=== PATIENT | female | born 1970 | race Hispanic/Latino ===

== ENCOUNTER 2019-02-01 22:31 | Inpatient (IN) | payer SELFPAY ==
[2019-02-01 23:29] LABS: Bilirubin Negative (Negative); Blood, Urine Negative (Negative); Clarity CLEAR (Clear); Glucose, Urine (Dipstick) Negative (Negative); Leukocyte Small (Negative); Nitrite Positive (Negative); Protein, Urine (Dipstick) Negative (Neg-Trace); Specific Gravity, Urine 1.011 (1.002-1.036); Urobilinogen 0.2 mg/dL (0.2-1.0); pH, Urine 5.5 (5.0-9.0)
[2019-02-01 23:30] LABS: Bacteria/HPF 1+ HPF (None Seen); Hyaline Casts/LPF 0-3 HYALINE CAST LPF (0-3 Hyaline); RBC/HPF None Seen HPF (0-3); Squamous Epithelial 0-3 HPF (0-3)
[2019-02-01 23:38] LABS: Amphetamine Not Detected (NotDetected); Barbiturates Screen Not Detected (NotDetected); Benzodiazepine Screen Not Detected (NotDetected); Cocaine Metabolite Screen Not Detected (NotDetected); Medtox Reader # READER 4; Methadone Not Detected (NotDetected); Methamphetamine Not Detected (NotDetected); Opiate Screen Not Detected (NotDetected); Oxycodone Screen Not Detected (NotDetected); Phencyclidine (PCP) Not Detected (NotDetected); THC/Cannabinoid Screen Not Detected (NotDetected); Tricyclic Screen Not Detected (NotDetected)
[2019-02-01 23:39] LABS: Medtox Control Line Valid? VALID (VALID)
[2019-02-01 23:48] LABS: #Basophils 0.1 thou/uL (0.0-0.2); #Eosinphils 0.1 thou/uL (0.0-0.7); #Lymphocytes 2.8 thou/uL (1.20-3.40); #Monocytes 0.5 thou/uL (0.11-0.59); #Neutrophils 7.6 thou/uL (1.40-6.50); %Basophils 0.5 % (0.0-1.0); %Eosinophils 0.6 % (0.0-10.0); %Lymphocytes 25.3 % (21.0-51.0); %Monocytes 4.2 % (0.0-10.0); %Neutrophils 69.4 % (42.0-75.0); Hemoglobin 11.7 g/dL (12.0-16.0); Mean Corpuscular HGB CONC 34.5 g/dL (32.0-36.0); Mean Corpuscular Hemoglobin 29.6 pg (27.0-31.0); Mean Corpuscular Volume 85.9 fL (78.0-98.0); Mean Platelet Volume 8.2 fL (7.4-10.4); Platelet Count 298 thou/uL (130-400); RBC Distribution Width 11.7 % (11.5-14.5); Red Blood Cell (RBC) Count 3.96 mill/uL (4.20-5.40)
[2019-02-01 23:50] LABS: BHCG - Serum Negative (NEGATIVE); Pregs Control Background? CLEAR/WHITE (CLR/WHITE); Pregs Control Bar Appear? YES (CONTROL BAR)
[2019-02-02 00:07] LABS: CK (CPK) 114 U/L (29-168); Lipase 30 U/L (8-78)
[2019-02-02 00:09] LABS: ALT (SGPT) 29 U/L (8-55); AST (SGOT) 21 U/L (5-34); Acetaminophen Less than 6.0 mcg/mL (10.0-30.0); Albumin 4.2 g/dL (3.5-5.0); Alcohol 183 mg/dL (Less than 10); Alkaline Phosphatase 123 U/L (40-150); Anion Gap 19 mmol/L (10-20); BUN (Urea Nitrogen) 14 mg/dL (7.0-18.7); Bilirubin, Total 0.3 mg/dL (0.2-1.2); Calc. Creatinine Clearance 0 mL/min (70-130); Carbon Dioxide 17 mmol/L (22-29); Chloride 108 mmol/L (98-107); Estimated GFR-MDRD 81; Globulin 2.9 g/dL (2.4-3.5); Glucose 175 mg/dL (70-105); Potassium 3.7 mmol/L (3.5-5.1); Protein, Total 7.1 g/dL (6.0-8.3); Salicylate Less than 8.0 mg/dL (15.0-30.0); Sodium 140 mmol/L (136-145)
[2019-02-02 00:30] LABS: Actual Bicarbonate (HCO3a) 17.2 mEq/L (22-28); Analyzer IN Cardio ER; Base Excess (BEa) -8.7 mEq/L (-2.0 to +3.0); CO2 Tension 37.1 mmHg (35.0-45.0); Calcium, Ionized 1.17 mmol/L (1.12-1.30); Carboxyhemoglobin (COHb) 0.3 gm% (0.0-3.0); Hemoglobin (Hb) 12.2 g/dL (12.0-16.0); O2 Tension (PaO2) 160.4 mmHg (80.0-100.0); Potassium - ABG Lab 3.71 mmol/L (3.70-5.30); pH, Arterial 7.29 (7.35-7.45)
[2019-02-02 00:31] LABS: ALV-art Gradient -7.135 (0-20)
[2019-02-02] MEDS ORDERED: Dextrose 5 % And 0.9 % NaCl 1,000 ML IV SCH (02:35)
[2019-02-02 03:01] VITALS: BMI 28.0
[2019-02-02] MEDS ORDERED: Dextrose 50% Abboject 50 ML SYRINGE SLOW IVP PRN (03:09)
[2019-02-02] MEDS ORDERED: Acetaminophen 500 MG TAB PO PRN (03:09)
[2019-02-02] MEDS ORDERED: Ondansetron PF 4 MG/2 ML Vial IVP PRN (03:09)
[2019-02-02] MEDS ORDERED: Lorazepam 2 MG/ML VIAL SLOW IVP PRN (03:09)
[2019-02-02] MEDS ORDERED: hydrALAZINE 20 MG/ML VIAL SLOW IVP PRN (03:09)
[2019-02-02] MEDS ORDERED: Dextrose 5% in Water 1,000 ML IV PRN (03:09)
[2019-02-02] MEDS ORDERED: Ondansetron ODT 4 MG TAB PO PRN (03:09)
[2019-02-02] MEDS: Multivitamins, Adult 10 ML, Folic Acid 1 MG, Thiamine HCl 100 MG in Dextrose 5 %-0.45 %... IV SCH (03:49)
[2019-02-02] MEDS: Sodium Chloride 0.9% 1,000 ML IV SCH ×2 (03:59→12:13)
[2019-02-02] MEDS: cefTRIAXone\\ROCEPHIN 1 GM in Sodium Chloride 0.9% 100 ML IVPB SCH (04:22)
--- NOTE | 2019-02-02 04:27 | HP ---
PRIMARY CARE PROVIDER: [facility]. CHIEF COMPLAINT: Altered mental status. HISTORY OF PRESENT ILLNESS: This is a 48-year-old female, who presents to [facility] Emergency Department via EMS personnel for evaluation of alcohol intoxication and altered mental status. The patient was apparently found by family members near an empty Tequila bottle according to family reports. History is obtained after discussions with the patient and the patient's at the bedside. Family denies any chronic alcoholism, but apparently the patient had been complaining to her cousin how nobody wanted her or nobody loved her. The patient was noted to be tearful and crying during most of the exam in the emergency room. No reported history of depression or psychiatric issues. The patient was noted acutely intoxicated in the emergency room. In the emergency room, the patient received intravenous normal saline x2 L and metabolic screening showed lactic acidosis with initial lactic acid level of 6.6. Plasma alcohol level was noted to be 183 on urine drug screen. The patient was transferred to the Critical Care Unit for further evaluation. PAST MEDICAL HISTORY: Diabetes mellitus, type 2. PAST SURGICAL HISTORY: Status post laparoscopic cholecystectomy. CURRENT MEDICATIONS: 1. Metformin 1000 mg p.o. b.i.d. 2. NovoLog 70/30 of 20 units subcutaneously q.a.m. 3. Glipizide 5 mg p.o. daily. 4. Lipitor 10 mg p.o. daily. ALLERGIES: NO KNOWN DRUG ALLERGIES. FAMILY HISTORY: Positive for diabetes mellitus. SOCIAL HISTORY: The patient is , accompanied by her in the hospital. Occasional alcohol use. No tobacco or illicit drug use. REVIEW OF SYSTEMS: CONSTITUTIONAL: Negative for weight loss or gain, ability to conduct usual activities. SKIN: Negative for rash, itching. EYES: Negative for double vision, pain. ENT/MOUTH: Negative for nose bleeding, neck stiffness, pain, tenderness. CARDIOVASCULAR: Negative for palpitations, dyspnea on exertion, orthopnea. RESPIRATORY: Negative for shortness of breath, wheezing, cough, hemoptysis, fever or night sweats. GASTROINTESTINAL: Negative for poor appetite, abdominal pain, heartburn, nausea, vomiting, constipation, or diarrhea. GENITOURINARY: Negative for urgency, frequency, dysuria, nocturia. MUSCULOSKELETAL: Negative for pain, swelling. NEUROLOGIC/PSYCHIATRIC: Negative for anxiety, depression. ALLERGY/IMMUNOLOGIC: Negative for skin rash, bleeding tendency. Otherwise, negative except as stated per HPI. PHYSICAL EXAMINATION: VITAL SIGNS: On admission, blood pressure 104/66, pulse 98, respiratory rate 14, temperature 98.6 degrees Fahrenheit, O2 saturation 98% on room air. GENERAL APPEARANCE: This is a 48-year-old female, alert and responsive, in no acute distress. HEENT: Pupils are equal, round, reactive to light and accommodation. Extraocular muscles are intact. No scleral icterus. No conjunctival injection. Nares patent. OP is clear. Teeth in fair repair. NECK: Supple. No cervical adenopathy. No thyromegaly. No carotid bruits. No JVD appreciated. Cervical spine with full active and passive range of motion. No meningeal signs noted. CHEST: Lungs are clear to auscultation bilaterally. CARDIOVASCULAR: S1 and S2 without noted murmur, rub, or gallop. ABDOMEN: Rounded, soft, nontender, and nondistended. Bowel sounds are positive in all 4 quadrants. There is no hepatosplenomegaly. No abdominal bruits. No rebound or guarding appreciated. EXTREMITIES: Warm and dry with fair turgor. No clubbing, cyanosis, or asymmetric edema appreciated. Pulses palpable distally at the dorsalis pedis, posterior tibial, and popliteal arteries bilaterally. Capillary refill less than 2 seconds. NEUROLOGIC: Cranial nerves 2 through 12 are grossly intact. No focal or lateralizing signs appreciated. PERTINENT LAB AND X-RAY FINDINGS: Sodium 140, potassium 3.7, chloride 108, carbon dioxide level 17, anion gap of 19, BUN 14, creatinine 0.76, and glucose 175. Lactic acid level 6.6. Calcium 9.0. LFTs within normal limits. Total CK 114. Lipase 30. Serum beta-hCG negative. CBC showed a white blood cell count of 11, hemoglobin 11.7, hematocrit 34, and platelet count 298 with normal differential. Arterial blood gas, dated 02/02/2019, showed a pH of 7.29, pCO2 of 37.1, pO2 of 160.4, bicarb 17.2, with O2 saturation 98%. Urinalysis positive for ketones, nitrites, and small leukocyte esterase with 7 to 10 wbc's per high-power field. Urine drug screen, dated 02/01/2019, showed a plasma alcohol level of 183. EKG dated, 02/02/2019, by my interpretation shows sinus mechanism with heart rates in the 90s. Normal R-wave progression noted in the precordial leads. Normal axis. No acute ST-T wave changes appreciated. ASSESSMENT AND PLAN: 1. Acute alcohol intoxication. The patient will be admitted to the Critical Care Unit. We will continue general supportive management. Ativan 0.5 mg IV q.6 hours p.r.n. We will continue to monitor for withdrawal symptoms. Alcohol cessation resources prior to discharge. Continue banana bag intravenously at 125 mL/h. 2. Acute metabolic encephalopathy. Suspect secondary to #1. We will continue general supportive management. Serial neurologic checks. Suspect clinical improvement with overall alcohol intoxication resolution. 3. Lactic acidosis. Suspect secondary to metformin exposure. We will continue IV fluids as outlined previously and repeat lactic acid level in the a.m. Hold metformin. 4. Diabetes mellitus type 2. We will confirm home diabetic regimen. Hold metformin. Insulin sliding scale for reflexive coverage. Accu-Cheks before meals and at bedtime. 5. Prophylaxis. SCDs while in bed. Pepcid 20 mg p.o. b.i.d. 6. Code Status is full. Surrogate medical decision maker is the patient's . Job ID: [id number]
[2019-02-02 06:13] LABS: ALT (SGPT) 28 U/L (8-55); AST (SGOT) 23 U/L (5-34); Albumin 3.9 g/dL (3.5-5.0); Alkaline Phosphatase 108 U/L (40-150); Anion Gap 17 mmol/L (10-20); BUN (Urea Nitrogen) 10 mg/dL (7.0-18.7); Bilirubin, Total 0.3 mg/dL (0.2-1.2); Calc. Creatinine Clearance 102 mL/min (70-130); Calcium 9.2 mg/dL (7.8-10.44); Carbon Dioxide 17 mmol/L (22-29); Chloride 113 mmol/L (98-107); Estimated GFR-MDRD 90; Globulin 2.8 g/dL (2.4-3.5); Glucose 168 mg/dL (70-105); Potassium 3.7 mmol/L (3.5-5.1); Protein, Total 6.7 g/dL (6.0-8.3); Sodium 143 mmol/L (136-145)
[2019-02-02 06:14] LABS: Lactic Acid 4.6 mmol/L (0.5-2.2)
[2019-02-02 06:18] LABS: Band 4 % (5-11); Hemoglobin 11.6 g/dL (12.0-16.0); Hypochromia SLIGHT = 6-15 cells (100X) (0-5/hpf); Lymphocytes 17 % (21-51); MDiff Complete? YES; Mean Corpuscular HGB CONC 33.8 g/dL (32.0-36.0); Mean Corpuscular Hemoglobin 29.8 pg (27.0-31.0); Mean Corpuscular Volume 88.4 fL (78.0-98.0); Mean Platelet Volume 8.2 fL (7.4-10.4); Monocytes 2 % (0-10); Neutrophil 77 % (42-75); Platelet Count 271 thou/uL (130-400); Platelet Morphology Comment Appears Adequate
[2019-02-02] MEDS ORDERED: Famotidine 20 MG TAB PO SCH (09:00)
--- NOTE | 2019-02-02 14:08 | PRG ---
DATE OF SERVICE: 02/02/2019 SUBJECTIVE: The patient reports she is feeling fine. She has been eating. She has been getting up and ambulating. She has no complaints. She does admit that she has some depression and sadnesses what has led to her drinking this occasion. OBJECTIVE: VITAL SIGNS: Temperature 98.4, pulse 81, BP 113/78, and O2 saturation 98%. GENERAL APPEARANCE: Slightly obese, age-appropriate female, in no distress. She is awake, alert, oriented, pleasant, and cooperative. HEART: Regular rate and rhythm without murmurs, gallops, or rubs. LUNGS: Clear to auscultation bilaterally. ABDOMEN: Soft, nontender, and nondistended with positive bowel sounds. EXTREMITIES: No cyanosis, clubbing, or edema. LABORATORY DATA: As of this morning, white count 10.0, hemoglobin 11.6, and platelets 271. Sodium 143, potassium 3.7, chloride 113, CO2 is 17, BUN 10, creatinine 0.69, and glucose 168. Most recent from lab draw postprandial was 444, although it is inconsistent with her previous numbers in the 160s. Lactic acid is 4.6. IMPRESSION AND PLAN: 1. Acute alcohol intoxication, resolved. 2. Lactic acidosis, possibly related to the patient's alcohol use along with the metformin. Metformin has been held. Her blood sugars are seemingly going up. We will continue to hold that. We will get other alternative treatments for now and repeat the lactic acid level in the morning. 3. Acute metabolic encephalopathy secondary to intoxication. The patient appears completely normal mental status at this time. 4. Diabetes mellitus. Resume glipizide. Continue sliding scale insulin. 5. Depression. The patient does admit to having depression and sadness, which she believes did lead to her over indulging in the alcohol. She is willing to consider treatment. We will consider starting a SSRI for this patient in the morning, once her lactic acidosis has fully resolved. Job ID: [id number]
[2019-02-02] MEDS: Sodium Chloride 0.45% 1,000 ML IV SCH (15:54)
--- NOTE | 2019-02-02 21:09 | CON ---
DATE OF CONSULTATION: 02/02/2019 SERVICE: Pulmonary Medicine. REASON FOR CONSULT: ICU patient. HISTORY OF PRESENT ILLNESS: The patient is a 48-year-old female with past medical history significant for essentially nothing. Apparently, she was quite sad and drank an entire bottle of Tequila. She ended up coming to the emergency department. She was acutely intoxicated. Because of some marginal blood pressures, she was tucked into the ICU. There was some minimal evidence of some end-organ damage associated with this. Overnight, it is cleared completely. She has cleared her toxins. Her mentation is fully intact, and her blood pressures have firmed up very nicely overnight. She cannot provide any additional elements of the history. She is denying suicidal ideation at this moment. The over drinking of alcohol is really primarily secondary to her being sad and not because of an attempt on her own life. PAST MEDICAL HISTORY: Type 2 diabetes mellitus. PAST SURGICAL HISTORY: Cholecystectomy, laparoscopic. ALLERGIES: NO KNOWN DRUG ALLERGIES. MEDICATIONS: List of her inpatient medications was reviewed. No specific updates were made at this time. FAMILY HISTORY: Noncontributory. SOCIAL HISTORY: The patient is . She does have significant alcohol abuse. She has no alcohol or illicit drug use. She has no exposure to chemicals, dust , or asbestos. REVIEW OF SYSTEMS: General, head, ears, eyes, nose, throat, cardiovascular, respiratory, GI, , musculoskeletal, neurologic, and skin are negative except as mentioned in the HPI. PHYSICAL EXAMINATION: VITAL SIGNS: Afebrile, pulse 81, blood pressure 113/78, respirations 18, saturation 98% on room air. GENERAL: The patient is awake and alert, in no apparent distress. LUNGS: Excellent air entry. No prolonged expiratory phase or wheezing is appreciated. HEART: Normal rate, regular. ABDOMEN: Soft, nontender, nondistended. Bowel sounds are positive. MUSCULOSKELETAL: No cyanosis or clubbing. No pitting in the bilateral lower extremities. NEUROLOGIC: Grossly nonfocal. LABORATORY DATA: WBC 10.0, hemoglobin 11.6, and platelets 271,000. PH 7.29, pCO2 37, PO2 160 at that time. Lactate was originally 6.6, but downtrended to 4.6. Anion gap was improving, creatinine 0.69 and improving. Basic metabolic profile is otherwise unremarkable. Glucose is greater than 444. ASSESSMENT: 1. Alcohol intoxication. 2. Metabolic encephalopathy, resolved. 3. Marginal blood pressures, resolved. 4. Type 2 diabetes mellitus, poorly controlled. 5. Depression, possible (currently denying this is suicidal ideation). DISCUSSION AND PLAN: I will transition the patient out of the ICU to the medical unit. We will continue ASE scales. If she develops signs of withdrawal, appropriate medications will be administered. At this point, she is hemodynamically stable and has no further requirements for intensive monitoring. As such, I think she can be transitioned to the medical floor. I will continue to follow for the time being. IV fluids will be switched over to half NS, but will be continued for the next 24 hours. I will once again repeat a lactate tomorrow morning. 70 minutes have been devoted to this patient in various activities. I personally reviewed all imaging studies and laboratory data noted within this document. For fifty percent of this time, I was interacting with the patient at the bedside or coordinating care with the care team. For the remainder of the time I was immediately available to the patient in the hospital unit. Job ID: [id number] MTDD
[2019-02-02] MEDS: HumaLOG 300 UNITS/3 ML VIAL SC PRN (22:57)
[2019-02-03] MEDS: Multivitamins, Adult 10 ML, Folic Acid 1 MG, Thiamine HCl 100 MG in Dextrose 5 %-0.45 %... IV SCH (04:18)
[2019-02-03] MEDS: Sodium Chloride 0.45% 1,000 ML IV SCH (04:44)
[2019-02-03] MEDS: cefTRIAXone\\ROCEPHIN 1 GM in Sodium Chloride 0.9% 100 ML IVPB SCH (04:45)
[2019-02-03] MEDS: glipiZIDE 5 MG TAB PO SCH (06:16)
[2019-02-03] MEDS: HumaLOG 300 UNITS/3 ML VIAL SC PRN ×4 (06:17→22:00)
[2019-02-03 06:35] LABS: Anion Gap 11 mmol/L (10-20); BUN (Urea Nitrogen) 10 mg/dL (7.0-18.7); Calc. Creatinine Clearance 100 mL/min (70-130); Calcium 8.6 mg/dL (7.8-10.44); Carbon Dioxide 23 mmol/L (22-29); Chloride 108 mmol/L (98-107); Estimated GFR-MDRD 89; Glucose 220 mg/dL (70-105); Potassium 3.8 mmol/L (3.5-5.1); Sodium 138 mmol/L (136-145)
[2019-02-03] MEDS ORDERED: Cepastat Lozenges 1 LOZ PO PRN (07:48)
[2019-02-03] MEDS ORDERED: Sodium Chloride 0.65% Nasal 44 ML BOT EA NARE PRN (07:48)
[2019-02-03] MEDS ORDERED: Senokot S 8.6-50 MG TAB PO PRN (07:48)
[2019-02-03] MEDS ORDERED: Artificial Tear Sol 15 ML BOT EA EYE PRN (07:48)
[2019-02-03] MEDS ORDERED: Bisacodyl 5 MG TAB PO PRN (07:48)
[2019-02-03] MEDS ORDERED: Loratadine 10 MG TAB PO PRN (07:48)
[2019-02-03] MEDS ORDERED: Eucerin (Mineral Oil/Petrolatum,White) 30 gm Jar TOP PRN (07:48)
[2019-02-03] MEDS ORDERED: Diabetic Tussin 200 MG/10 ML UDCUP PO PRN (07:48)
[2019-02-03] MEDS ORDERED: Loperamide HCl 2 MG CAP PO PRN (07:48)
[2019-02-03] MEDS ORDERED: Zolpidem Tartrate 5 MG TAB PO PRN (07:48)
[2019-02-03] MEDS ORDERED: Acetaminophen 500 MG TAB PO PRN (07:48)
[2019-02-03] MEDS: Atorvastatin Calcium 10 MG TAB PO SCH (09:30)
--- NOTE | 2019-02-03 13:11 | PDOC.PN ---
- Subjective Encounter Start Date: 02/03/19 Encounter Start Time: 07:45 -: old records requested/rev Patient seen and examined. No new complaints. No overnight events - Objective Resuscitation Status - Order Detail: 02/02/19 02:56 Resuscitation Status Routine Resuscitation Status: FULL: Full Resuscitation MAR Reviewed: Yes Vital Signs & Weight: Vital Signs (12 hours) Temp Pulse Resp BP BP Pulse Ox 02/03/19 12:00 124/81 02/03/19 11:00 98 F 76 17 124/81 97 02/03/19 09:30 109/71 95 02/03/19 07:30 98 F 81 20 109/71 95 02/03/19 04:45 98.1 F 79 16 104/69 95 02/03/19 04:00 104/69 Weight Weight 143 lb 15.39 oz Most Recent Monitor Data Heart Rate from ECG 80 NIBP 118/76 NIBP BP-Mean 90 Respiration from ECG 14 SpO2 97 I&O: 02/02/19 02/03/19 02/04/19 06:59 06:59 06:59 Intake Total 298 3678 Output Total 850 1350 Balance -552 2328 Result Diagrams: 02/02/19 05:48 02/03/19 05:17 Additional Labs: Accuchecks 02/03/19 02/03/19 02/02/19 11:40 04:56 22:51 POC Glucose 230 H 206 H 211 H 02/02/19 15:38 POC Glucose 162 H Phys Exam - Physical Examination Constitutional: NAD HEENT: PERRLA, moist MMs, sclera anicteric Neck: no JVD, supple Respiratory: no wheezing, no rales, no rhonchi Cardiovascular: RRR, no significant murmur, no rub Gastrointestinal: soft, non-tender, no distention, positive bowel sounds Musculoskeletal: no edema, pulses present Neurological: non-focal, normal sensation, moves all 4 limbs Lymphatic: no nodes Psychiatric: normal affect, A&O x 3 Skin: no rash, normal turgor Dx/Plan (1) Acute alcohol intoxication Code(s): F10.929 - ALCOHOL USE, UNSPECIFIED WITH INTOXICATION, UNSPECIFIED Status: Resolved Qualifiers: Complication of substance-induced condition: uncomplicated Qualified Code(s ): F10.920 - Alcohol use, unspecified with intoxication, uncomplicated (2) Acute metabolic encephalopathy Code(s): G93.41 - METABOLIC ENCEPHALOPATHY Status: Resolved (3) Anemia, normocytic normochromic Code(s): D64.9 - ANEMIA, UNSPECIFIED Status: Chronic (4) Lactic acidosis Code(s): E87.2 - ACIDOSIS Status: Resolved (5) Diabetes type 2, uncontrolled Code(s): E11.65 - TYPE 2 DIABETES MELLITUS WITH HYPERGLYCEMIA Status: Chronic (6) Dyslipidemia Code(s): E78.5 - HYPERLIPIDEMIA, UNSPECIFIED Status: Chronic (7) UTI (urinary tract infection) Status: Acute - Plan cont current plan of care, plan discussed w/ family, continue antibiotics * continue rocephin * follow culture * continue IVF * expecting discharge tomorrow * counselled to avoid alcohol abuse * discussed with family * medication reviewed as below * symptomatic treatment. Review of Systems - Review of Systems ENT: negative: Ear Pain, Ear Discharge, Nose Pain, Nose Discharge, Nose Congestion, Mouth Pain, Mouth Swelling, Throat Pain, Throat Swelling, Other Respiratory: negative: Cough, Dry, Shortness of Breath, Hemoptysis, SOB with Excertion, Pleuritic Pain, Sputum, Wheezing Cardiovascular: negative: chest pain, palpitations, orthopnea, paroxysmal nocturnal dyspnea, edema, light headedness, other Gastrointestinal: negative: Nausea, Vomiting, Abdominal Pain, Diarrhea, Constipation, Melena, Hematochezia, Other Genitourinary: negative: Dysuria, Frequency, Incontinence, Hematuria, Retention , Other Musculoskeletal: negative: Neck Pain, Shoulder Pain, Arm Pain, Back Pain, Hand Pain, Leg Pain, Foot Pain, Other - Medications/Allergies Allergies/Adverse Reactions: Allergies Allergy/AdvReac Type Severity Reaction Status Date / Time No Known Allergies Allergy Verified 02/02/19 03:25 Medications: Current Medications Acetaminophen (Tylenol) 500 mg PO Q6H PRN PRN Reason: Mild Pain (1-3) Artificial Tears (Liquitears 15ml Bottle) 2 drop EA EYE PRN PRN PRN Reason: Dry Eyes Atorvastatin Calcium (Lipitor) 5 mg PO DAILY JETHRO Last Admin: 02/03/19 09:30 Dose: 5 mg Bisacodyl (Dulcolax) 10 mg PO DAILYPRN PRN PRN Reason: Constipation Dextrose/Water (Dextrose 50%) 25 gm SLOW IVP PRN PRN PRN Reason: Hypoglycemia Glipizide (Glucotrol) 5 mg PO DAILY-[facility] Last Admin: 02/03/19 06:16 Dose: 5 mg Glucagon (Glucagon) 1 mg IM PRN PRN PRN Reason: Hypoglycemia Guaifenesin (Robitussin Sf) 200 mg PO Q4H PRN PRN Reason: Cough Hydralazine HCl (Apresoline) 10 mg SLOW IVP Q4H PRN PRN Reason: SBP > 180 and HR < 70 Multivitamins 10 ml/ Folic Acid 1 mg/ Thiamine HCl 100 mg / Dextrose/Sodium Chloride 1,011.2 mls @ 125 mls/hr IV Q24HR [facility] Last Admin: 02/03/19 04:18 Dose: 1,011.2 mls Dextrose/Water (D5w) 1,000 mls @ 0 mls/hr IV .Q0M PRN PRN Reason: Hypoglycemia Ceftriaxone Sodium 1 gm/ (Sodium Chloride) 100 mls @ 200 mls/hr IVPB Q24HR [facility] Last Admin: 02/03/19 04:45 Dose: 100 mls Sodium Chloride (1/2 Normal Saline) 1,000 mls @ 75 mls/hr IV .[id number] [facility] Last Admin: 02/03/19 04:44 Dose: 1,000 mls Insulin Human Lispro (Humalog) 0 units SC .MILD SLIDING SCALE PRN PRN Reason: Mild Correctional Scale Last Admin: 02/03/19 12:29 Dose: 3 unit Insulin Human Lispro (Humalog) 0 units SC .BEDTIME SLIDING SC PRN PRN Reason: Bedtime Correctional Scale Last Admin: 02/02/19 22:57 Dose: 2 unit Loperamide HCl (Imodium) 2 mg PO PRN PRN PRN Reason: Diarrhea/Loose Stools Loratadine (Claritin) 10 mg PO DAILYPRN PRN PRN Reason: Sinus Symptoms Lorazepam (Ativan) 0.5 mg SLOW IVP Q6H PRN PRN Reason: Anxiety/Agitation Mineral Oil/White Petrolatum (Eucerin Cream) 0 gm TOP BIDPRN PRN PRN Reason: Dry Skin Ondansetron HCl (Zofran Odt) 4 mg PO Q6H PRN PRN Reason: Nausea/Vomiting Last Admin: 02/02/19 08:04 Dose: 4 mg Ondansetron HCl (Zofran) 4 mg IVP Q6H PRN PRN Reason: Nausea/Vomiting Senna/Docusate Sodium (Senokot S) 2 tab PO BID PRN PRN Reason: Constipation Sodium Chloride ([place] Nasal [place] 0.65%) 0 ml EA NARE QIDPRN PRN PRN Reason: Nasal Congestion Throat Lozenges (Cepastat Lozenges) 1 aleah PO Q2H PRN PRN Reason: Sore Throat Zolpidem Tartrate (Ambien) 5 mg PO HSPRN PRN PRN Reason: Insomnia
--- NOTE | 2019-02-03 16:59 | PRG ---
DATE OF SERVICE: 02/03/2019 SERVICE: Pulmonary Medicine. INTERVAL HISTORY: The patient is doing outstanding from respiratory standpoint. She has no complaints of chest pain, fevers, or chills. Otherwise, there has been no interval change to her condition. PHYSICAL EXAMINATION: VITAL SIGNS: Afebrile, pulse 74, blood pressure 118/76, respirations 19, saturation 98% on room air. GENERAL: The patient is awake and alert, in no apparent distress. LUNGS: Excellent air entry with no prolonged expiratory phase or wheezing present. HEART: Normal rate, regular. ABDOMEN: Soft, nontender, and nondistended. Bowel sounds are positive. MUSCULOSKELETAL: No cyanosis or clubbing. No pitting in the bilateral lower extremities. NEUROLOGIC: Grossly nonfocal. LABORATORY DATA: Lactate 1.0. Basic metabolic profile is otherwise unremarkable. Alcohol was 183. Urine drug screen, acetaminophen and salicylates, but otherwise unremarkable. ASSESSMENT: 1. Alcohol intoxication, resolved. 2. Metabolic encephalopathy, resolved. 3. Type 2 diabetes mellitus. DISCUSSION AND PLAN: At this point, the patient has no further requirements for inpatient Pulmonary Critical Care opinion. She is tolerating p.o., so I will interrupt her IV fluids. I will sign off. Please call with additional questions or concerns through time. From purely respiratory perspective, the patient is certainly more than stable for transition out of the hospital. Job ID: [id number]
[2019-02-04] MEDS: Multivitamins, Adult 10 ML, Folic Acid 1 MG, Thiamine HCl 100 MG in Dextrose 5 %-0.45 %... IV SCH (02:18)
[2019-02-04] MEDS: cefTRIAXone\\ROCEPHIN 1 GM in Sodium Chloride 0.9% 100 ML IVPB SCH (04:21)
[2019-02-04 07:36] LABS: Anion Gap 12 mmol/L (10-20); BUN (Urea Nitrogen) 11 mg/dL (7.0-18.7); Calc. Creatinine Clearance 100 mL/min (70-130); Calcium 9.1 mg/dL (7.8-10.44); Carbon Dioxide 25 mmol/L (22-29); Chloride 105 mmol/L (98-107); Estimated GFR-MDRD 89; Glucose 307 mg/dL (70-105); Potassium 3.7 mmol/L (3.5-5.1); Sodium 138 mmol/L (136-145)
[2019-02-04 07:46] VITALS: TEMP 98.1
[2019-02-04] MEDS: glipiZIDE 5 MG TAB PO SCH (08:07)
[2019-02-04] MEDS: Atorvastatin Calcium 10 MG TAB PO SCH (08:07)
[2019-02-04] MEDS ORDERED: Thiamine 100 MG TAB PO SCH (09:00)
[2019-02-04] MEDS ORDERED: Cyanocobalamin (Vitamin B-12) 1,000 MCG TAB PO SCH (09:00)
[2019-02-04] MEDS ORDERED: Folic Acid 1 MG TAB PO SCH (09:00)
[2019-02-04 11:11] VITALS: BP 114/73
[2019-02-04] MEDS: HumaLOG 300 UNITS/3 ML VIAL SC PRN (11:32)
--- NOTE | 2019-02-04 11:33 | DIS ---
DATE OF ADMISSION: 02/02/2019 DATE OF DISCHARGE: 02/04/2019 PRIMARY CARE PHYSICIAN: Dr. Marva Bustillo. DISCHARGE DISPOSITION: Home. PRIMARY DISCHARGE DIAGNOSES: 1. Urinary tract infection. 2. Lactic acidosis. 3. Acute metabolic encephalopathy. 4. Acute alcohol intoxication. SECONDARY DISCHARGE DIAGNOSES: 1. Dyslipidemia. 2. Diabetes, type 2. 3. Normocytic normochromic anemia. PRIMARY PROCEDURE/OPERATION: None. RADIOLOGICAL INVESTIGATION: None. SIGNIFICANT LABORATORY DATA: WBC 10.0, hemoglobin 11.6, platelet 271. Sodium 138 and creatinine 0.70. Urine culture negative. DISCHARGE MEDICATIONS: 1. Lipitor 5 mg p.o. daily. 2. Glipizide 5 mg p.o. daily. 3. Insulin 70/30, 20 units subcu daily. 4. Metformin 1000 mg b.i.d. 5. Cipro 500 mg p.o. b.i.d. for 5 days. 6. Vitamin B12 of 1000 mcg p.o. daily. 7. Folic acid 1 mg daily. 8. Thiamine 100 mg p.o. daily. CONTRAINDICATION: None. CODE STATUS: Full code. INPATIENT MANAGER SQL: Dr. Garay was following while in hospital. TEST RESULT PENDING ON DISCHARGE: None. ALLERGIES: NO KNOWN DRUG ALLERGIES. DISCHARGE PLAN: Posthospital, the patient will follow up with primary care physician in 1 week. HOSPITAL COURSE: A 48-year-old female with above-mentioned medical problem, who was admitted by Dr. Maldonado. Please see his H and P for further details. The patient was admitted after alcohol intoxication. She was completely altered on admission. She was hydrated with IV fluid and observed in ICU because the patient remained in ICU that is why Dr. Garay saw this patient. Next day, the patient was transferred to medical floor. On admission, she was having lactic acidosis, which was improved. The patient was also having asymptomatic urinary tract infection, which was treated with Rocephin and on discharge, ciprofloxacin prescribed. The patient was given counseling to avoid alcohol abuse. The patient will continue all her previous home medication. The patient is seen and examined at bedside today. REVIEW OF SYSTEMS: All review of systems reviewed with her and negative. PHYSICAL EXAMINATION: VITAL SIGNS: Currently, temperature 98.1, pulse 82, respiratory rate 16, saturation 96% on room air, blood pressure 107/57, and weight 143 pounds. GENERAL: The patient is currently alert, awake. No obvious acute distress. HEENT: Head; normocephalic and atraumatic. Eyes; pupils round and reactive to light. Extraocular muscle intact. ENT, oropharynx within normal limit. LUNGS: Clear without any rhonchi. CARDIAC: S1 and S2, regular without any murmur. ABDOMEN: Soft and benign. EXTREMITIES: No edema. NEUROLOGIC: Nonfocal examination. The patient is medically stable for discharge today. Job ID: [id number]
--- NOTE | 2019-02-05 14:35 | EKG ---
Test Reason : Blood Pressure : / mmHG Vent. Rate : 099 BPM Atrial Rate : 099 BPM P-R Int : 150 ms QRS Dur : 078 ms QT Int : 392 ms P-R-T Axes : 030 007 021 degrees QTc Int : 503 ms Normal sinus rhythm Possible Inferior infarct , age undetermined Prolonged QT Abnormal ECG Confirmed by ANAIS MORGAN ([id number]), editor & co founder TAMANNA ROA ([id number]) on 02/05/2019 2:35:40 PM Referred By: Confirmed By:ANAIS MORGAN
== END 2019-02-04 12:00 | disposition home or self-care (01) | DRG 896 ==
LOC: ERS 22:31 → CCU 02-02 02:27 → T4-B 02-02 15:34
PROVIDERS: ADMIT Family Medicine; ATTEND Family Medicine
DX: F10.129 Alcohol abuse with intoxication, unspecified (principal); G93.41 Metabolic encephalopathy; N39.0 Urinary tract infection, site not specified; E87.2 Acidosis; E11.9 Type 2 diabetes mellitus without complications; Y90.6 Blood alcohol level of 120-199 mg/100 ml; F32.9 Major depressive disorder, single episode, unspecified; D64.9 Anemia, unspecified; E78.5 Hyperlipidemia, unspecified; Z79.84 Long term (current) use of oral hypoglycemic drugs; Z79.4 Long term (current) use of insulin; Z90.49 Acquired absence of other specified parts of digestive tract; Z79.899 Other long term (current) drug therapy
CPT/HCPCS: 36415; 36416; 51701; 80048; 80053; 80306; 80307; 81003; 81015; 82550; 82805; 83605; 83690; 84703; 85007; 85025; 85027; 93005; 96360; 96361; A4353; J0696; J3411; J3490; J7042; Q0162